=== PATIENT | female | born 1935 | race Caucasian/White ===

== ENCOUNTER 2022-03-19 07:53 | Day surgery (SDC) | payer OTHER, MEDICARE ==
[2022-03-17 13:44] VITALS: BMI 24.1
[2022-03-19] MEDS ORDERED: ROPIVACAINE HCL/PF 100 MG/20 ML VIAL ONE (09:11)
[2022-03-19] MEDS ORDERED: MIDAZOLAM HCL 2 MG/2 ML SINGLE DOSE VIAL ONE (09:11)
[2022-03-19] MEDS ORDERED: LIDOCAINE HCL 2% 100 MG/5 ML DISP.SYRIN ONE (09:14)
[2022-03-19] MEDS ORDERED: PROPOFOL 20 ML ONE (09:14)
[2022-03-19] MEDS ORDERED: ceFAZolin SODIUM 1 GM VIAL ONE (09:37)
[2022-03-19 11:29] VITALS: RESP 20; TEMP 97
[2022-03-19 11:37] VITALS: BP 144/60; PULSE 62
== END 2022-03-19 12:20 | disposition home or self-care (01) ==
LOC: FASU 07:53
PROVIDERS: ATTEND Orthopaedic Surgery
PROC: 0LQ40ZZ Repair Left Upper Arm Tendon, Open Approach (ICD-10-PCS; 2022-03-19)
PROC: 0PSL04Z Reposition Left Ulna with Internal Fixation Device, Open Approach (ICD-10-PCS; principal; 2022-03-19 09:52)
DX: S52.022A Displaced fracture of olecranon process without intraarticular extension of left ulna, initial encounter for closed fracture (principal); Y92.9 Unspecified place or not applicable; Y93.9 Activity, unspecified
CPT/HCPCS: 24341; 24685; C1713; 73070-TC-LT-FY

== ENCOUNTER 2022-10-16 04:21 | Day surgery (SDC) | payer OTHER, MEDICARE ==
[2022-10-14 17:10] VITALS: BMI 25.4
[2022-10-16] MEDS ORDERED: BUPIVACAINE HCL/PF 0.5% (5MG/ML) 10 ML VIAL ONE (07:05)
[2022-10-16] MEDS ORDERED: ACETAMINOPHEN INJECTION 100 ML IVPB ONE (07:42)
[2022-10-16] MEDS ORDERED: KETAMINE HCL 500 MG/10 ML VIAL ONE (07:51)
[2022-10-16] MEDS ORDERED: LIDOCAINE HCL 1%, 10 MG/ML (20ML VIAL) INF ONE (07:53)
[2022-10-16] MEDS ORDERED: BUPIVACAINE HCL/PF 0.5% (5MG/ML) 10 ML VIAL IJ ONE (07:53)
[2022-10-16] MEDS ORDERED: ceFAZolin SODIUM 1 GM VIAL IVPB ONE (07:54)
[2022-10-16] MEDS ORDERED: PROPOFOL 40 ML ONE (08:01)
[2022-10-16] MEDS ORDERED: SUCCINYLCHOLINE CHLORIDE 200 MG/10 ML SYRINGE ONE (08:02)
[2022-10-16] MEDS ORDERED: ROCURONIUM BROMIDE 50 MG/5 ML SYRINGE ONE (08:07)
[2022-10-16 08:48] VITALS: RESP 16; TEMP 95.9
[2022-10-16 10:31] VITALS: BP 121/55; PULSE 77
== END 2022-10-16 10:20 | disposition home or self-care (01) ==
LOC: JASU-SURG 04:21
PROVIDERS: ATTEND Podiatrist Foot & Ankle Surgery
PROC: 0SRP0JZ Replacement of Right Toe Phalangeal Joint with Synthetic Substitute, Open Approach (ICD-10-PCS; principal; 2022-10-16 07:30)
DX: M20.41 Other hammer toe(s) (acquired), right foot (principal)
CPT/HCPCS: 88305-TC; 88311-TC

== ENCOUNTER 2024-03-15 12:59 | Emergency (ER) | payer OTHER, MEDICARE ==
[2024-03-15 13:07] VITALS: BP 158/70; PULSE 74; RESP 18; TEMP 97.8; BMI 22.6
== END 2024-03-15 17:11 | disposition home or self-care (01) ==
LOC: JER 12:59
DX: S32.591A Other specified fracture of right pubis, initial encounter for closed fracture (principal); S32.511A Fracture of superior rim of right pubis, initial encounter for closed fracture; W01.0XXA Fall on same level from slipping, tripping and stumbling without subsequent striking against object, initial encounter
CPT/HCPCS: 70450-TC; 71046-TC-FY; 72125-TC; 72170-TC-FY; 72192-TC; 73521-TC-FY; 99284-25